=== PATIENT | male | born 1960 | race Caucasian/White ===

== ENCOUNTER 2017-05-09 16:50 | Inpatient (IN) | payer OTHER ==
[~2017-05-09 16:50] MED LIST: ISOVUE-370 76%-LOCM 1 ML ONE; Iopamidol 370 76% 50 ML VIAL FS ONE
[2017-05-09] MEDS ORDERED: Ondansetron HCl/PF 4 MG/2 ML Vial ONE (17:15)
[2017-05-09 17:52] LABS: Bilirubin Negative (Negative); Blood, Urine Negative (Negative); Glucose, Urine (Dipstick) 500 mg/dL (Negative); Ketone, Urine Negative (Negative); Nitrite Negative (Negative); Protein, Urine (Dipstick) Negative (Neg-Trace); Urobilinogen 0.2 mg/dL (0.2-1.0)
[2017-05-09 18:00] LABS: #Basophils 0.1 thou/uL (0.0-0.2); #Eosinphils 0.4 thou/uL (0.0-0.7); #Lymphocytes 1.8 thou/uL (1.20-3.40); #Monocytes 0.6 thou/uL (0.11-0.59); #Neutrophils 7.6 thou/uL (1.40-6.50); %Basophils 0.8 % (0.0-1.0); %Eosinophils 3.9 % (0.0-10.0); %Lymphocytes 17.3 % (21.0-51.0); %Monocytes 5.3 % (0.0-10.0); Hematocrit 47.9 % (42.0-52.0); Mean Platelet Volume 6.9 fL (7.4-10.4); Red Blood Cell (RBC) Count 5.31 mill/uL (4.70-6.10); White Blood Cell (WBC) Count 10.4 thou/uL (4.8-10.8)
--- NOTE | 2017-05-09 18:08 | RAD ---
EXAM: ONE VIEW CHEST 05/09/17 HISTORY: Right upper quadrant pain. The patient has gallbladder problems. COMPARISON: 11/30/16. FINDINGS: Stable postsurgical change left hemithorax. Persistent elevation of the right hemidiaphragm with anselmo nting of the right costophrenic angle. Stable cardiac silhouette. No pneumothorax. IMPRESSION: No significant change. No acute process. POS: [facility]
[2017-05-09 18:22] LABS: ALT (SGPT) 35 U/L (8-55); AST (SGOT) 23 U/L (5-34); Alkaline Phosphatase 59 U/L (40-150); Anion Gap 16 mmol/L (10-20); BUN (Urea Nitrogen) 14 mg/dL (8.4-25.7); Bilirubin, Total 0.2 mg/dL (0.2-1.2); Calc. Creatinine Clearance 0 mL/min (70-130); Calcium 9.7 mg/dL (7.8-10.44); Carbon Dioxide 21 mmol/L (22-29); Chloride 104 mmol/L (98-107); Estimated GFR-MDRD Greater than 90; Globulin 3.1 g/dL (2.4-3.5); Lipase 15 U/L (8-78); Protein, Total 7.3 g/dL (6.0-8.3)
[2017-05-09 18:34] LABS: Troponin I Less than 0.010 ng/mL (< 0.028)
--- NOTE | 2017-05-09 22:06 | CT ---
EXAM: ABDOMEN CT WITH CONTRAST PELVIC CT WITH CONTRAST 05/09/17 HISTORY: Previous appendectomy and multiple colonoscopies and colon surgery. Right sided pain. COMPARISON: 02/10/17. TECHNIQUE: An abdomen and pelvic CT are performed with IV and enteric contrast. Coronal reformatted images are submitted for interpretation. FINDINGS: Chronic changes in the lung bases. Heart size is normal. No significant pericardial fluid. Descendin g thoracic aorta and abdominal aorta have a normal caliber. No periaortic fat stranding. Intra and extrahepatic portal vein is patent. Symmetric attenuation of the psoas muscles. The liver, spleen, pancreas and adrenal glands have appropriate enhancement. Symmetric enhancement of the kidneys. Bilaterally, no obstructive uropathy. No gastrohepatic, retrocrural or periportal lymphadenopathy. No mesenteric mass, lymphadenopathy, free air or free fluid. Gastric mucosa, duodenum, and proximal small bowel loops are opacified with contrast. Mid to distal small bowel loops are not opacified wit h contrast. Nevertheless, no evidence of bowel obstruction. There is fecal material in a nondistende d, nondilated colon. Mild mucosal prominence is nonspecific and may be due to inadequate distention. There is evidence of diverticulitis without evidence of diverticulitis. Anastomotic sutures are not ed in the distal colon. Near the neck of the gallbladder, there is a 6 mm hyperdensity which may represent a small stone. Ad ditional sludge may be present. There is minimal enhancement of the gallbladder. PELVIC CT: No mass, lymphadenopathy, free air or free fluid. Urinary bladder is unremarkable. There are no lytic or blastic lesions. IMPRESSION: 1. No acute abnormality in the abdomen or pelvis. 2. There is persistent hyperdensity in the neck of the gallbladder, described on examination fr om 02/10/17. Possibility of cholelithiasis is raised. There may be a small amount of sludge. Nonemerg ent gallbladder ultrasound is recommended. Note, if followup gallbladder ultrasound does not demonst rate ka gallstone, the possibility of a possible mass-like lesion within the neck of the gallbladder should be considered. Surgical consultation is recommended. POS: [facility]
--- NOTE | 2017-05-09 23:06 | ULT ---
GALLBLADDER ULTRASOUND: 05/09/17 COMPARISON: 12/06/16 CLINICAL HISTORY: Right upper quadrant pain. FINDINGS: Evaluation of hepatic parenchyma reveals a coarsened echotexture with increased echogenicity. The ga llbladder reveals a markedly thickened wall approximating 7 mm with slight pericholecystic edema. Th ere is dilatation of common duct at 8 mm. No shadowing cholelithiasis is visualized. IMPRESSION: Thickened gallbladder wall with slight pericholecystic edema. Correlate for evidence of cholecystiti s. No shadowing cholelithiasis is visualized. Coarsened echotexture with increased echogenicity of the hepatic parenchyma. This may be on the basi s of hepatocellular disease or fatty infiltration. The findings may be further assessed with dedicat ed liver function enzymes. POS: C
[2017-05-10] MEDS: Morphine 4 MG/ML VIAL IV PRN ×3 (00:59→09:14)
[2017-05-10] MEDS ORDERED: Lactated Ringer's 1,000 ML IV SCH (01:00)
[2017-05-10 03:07] VITALS: BMI 30.9
[2017-05-10] MEDS ORDERED: Ondansetron HCl/PF 4 MG/2 ML Vial IVP PRN (08:23)
[2017-05-10] MEDS ORDERED: Dextrose 50% Abboject 50 ML SYRINGE SLOW IVP PRN ×2 (08:29→12:36)
[2017-05-10] MEDS ORDERED: Dextrose 5% in Water 1,000 ML IV PRN ×2 (08:29→12:36)
[2017-05-10] MEDS ORDERED: Insulin Regular 300 UNITS/3 ML VIAL SC PRN (08:29)
[2017-05-10] MEDS ORDERED: Morphine PF 1 MG/ML SYR IVP PRN (08:42)
[2017-05-10 08:44] LABS: PTT 27.9 SEC (22.9-36.1); Prothrombin Time 13.3 SEC (12.0-14.7)
[2017-05-10] MEDS ORDERED: FLU VACC QS2017-18 36 mo. & older 0.5 ML SYRINGE IM ONE (09:00)
[2017-05-10] MEDS ORDERED: Sodium Bicarbonate 2.4 MEQ/5 ML ONE (09:14)
[2017-05-10] MEDS: Pantoprazole 40 MG VIAL IVP SCH (09:14)
[2017-05-10] MEDS: 1/2 NS w/KCL 20 mEq 1,000 ML IV SCH ×3 (09:14→22:51)
[2017-05-10] MEDS ORDERED: Fentanyl 100 MCG/2 ML VIAL ONE (09:15)
[2017-05-10] MEDS ORDERED: Midazolam HCl 2 mg/2 ml Vial ONE (09:15)
[2017-05-10 09:17] LABS: #Basophils 0.1 thou/uL (0.0-0.2); #Eosinphils 0.2 thou/uL (0.0-0.7); #Monocytes 0.9 thou/uL (0.11-0.59); #Neutrophils 16.1 thou/uL (1.40-6.50); %Basophils 0.3 % (0.0-1.0); %Eosinophils 0.9 % (0.0-10.0); %Lymphocytes 5.7 % (21.0-51.0); Mean Platelet Volume 6.7 fL (7.4-10.4); White Blood Cell (WBC) Count 18.3 thou/uL (4.8-10.8)
[2017-05-10] MEDS: Piperacillin/Tazobactam 3.375 GM, Admixture Fee 1 EACH in Sodium Chloride 0.9% 100 ML IVPB SCH ×3 (09:22→20:39)
[2017-05-10 09:40] LABS: ALT (SGPT) 47 U/L (8-55); AST (SGOT) 34 U/L (5-34); Alkaline Phosphatase 58 U/L (40-150); Bilirubin, Direct 0.2 mg/dL (0.1-0.3); Bilirubin, Total 0.6 mg/dL (0.2-1.2); Protein, Total 6.8 g/dL (6.0-8.3)
[2017-05-10] MEDS: Morphine 4 MG/ML VIAL SLOW IVP PRN ×2 (10:50→15:59)
--- NOTE | 2017-05-10 11:10 | HP ---
CHIEF COMPLAINT: Right upper quadrant abdominal pain. HISTORY OF PRESENT ILLNESS: This is a 57-year-old male with a 24-hour history of right upper quadra nt pain radiating to the back, associated with nausea, no vomiting. Patient has had this in the [facility]. In fact in December at [facility], he had a cholecystostomy tube placed for the exact same thing, becau se he was too high risk to go to the operating room. PAST MEDICAL HISTORY: Severe COPD, history of colon cancer, history of diabetes. PAST SURGICAL HISTORY: He has had bilateral lung lobectomies, he has had 2 exploratory laparotomies and a partial colectomy and cholecystostomy tube. MEDICATIONS: Include metformin, Prilosec, Spiriva, albuterol, hydrocodone. ALLERGIES: He is allergic to ATIVAN. SOCIAL HISTORY: He is . He smokes 1 pack per day. Occasional alcohol weekly. FAMILY HISTORY: Heart disease and lung cancer. PHYSICAL EXAMINATION: VITAL SIGNS: Temperature 97.7, pulse 87, blood pressure 156/76. GENERAL: He is writhing in pain, but he is awake. HEENT: No jaundice. LUNGS: Hypo-resident. HEART: Regular rate and rhythm. ABDOMEN: Very tender right upper quadrant. I do not feel any masses. EXTREMITIES: Unremarkable. LABORATORY DATA AND X-RAY FINDINGS: His white count is 10.4, H\T\H is 16 and 47, platelet count 206 . Electrolytes are fine. LFTs normal. CT scan shows hyperdensity in the neck of the gallbladder c onsistent with an impacted gallstone. Ultrasound shows a thickened gallbladder wall with pericholec ystic fluid. ASSESSMENT: High surgical risk with acute cholecystitis. PLAN: Percutaneous drainage. Pulmonary consultation. Diabetes management.
[2017-05-10] MEDS ORDERED: Ketorolac Tromethamine 30 MG/ML VIAL IVP PRN (11:27)
--- NOTE | 2017-05-10 12:18 | CT ---
PROCEDURE: CT GUIDED DRAIN PLACEMENT INTO THE GALLBLADDER: PREPROCEDURE DIAGNOSIS: Acute cholecystitis and severe chronic obstructive pulmonary disease. POSTPROCEDURE DIAGNOSIS: Acute cholecystitis and severe chronic obstructive pulmonary disease. TRANSPORTATION MAINTENANCE WORKER: Dr. Pierce. COMPLICATIONS: None. SPECIMEN: None. ANESTHESIA: 10 mL of buffered 1% Lidocaine. TECHNIQUE: Prior to the procedure, the risks and benefits of a CT-guided drain placement in the gallbladder wer e explained with the patient and he consented fully to the procedure. The patient was scanned with a fiducial marker in place. The area of best entry into the gallbladde r was marked in the right upper quadrant of the abdomen. The abdomen was prepped and draped in the usual sterile fashion. Lidocaine was used to anesthetize the skin and soft tissues down toward the gallbladder. A CT was p erformed showing appropriate direction of the Lidocaine needle. The Lidocaine needle was then remov ed. A small skin incision was made allowing for patches of a Yueh needle/catheter. This was placed using CT guidance into the gallbladder. Bilious fluid was seen within the Yueh needle and catheter . A scan also confirmed the tip of the Yueh catheter within the gallbladder. The Yueh needle was r emoved and a Amplatz wire was placed through the Yueh catheter in the gallbladder. An 8 Guinean pigt ail catheter was eventually placed over the Amplatz wire and coiled within the gallbladder. A CT scan showed the pigtail catheter within the gallbladder. An 0 silk suture was used to secure t he gallbladder catheter to the patient's skin externally. IMPRESSION: Status post CT-guided gallbladder drain placement. POS: [facility]
[2017-05-10] MEDS: Ketorolac Tromethamine 30 MG/ML VIAL IVP PRN ×2 (12:26→20:40)
[2017-05-10] MEDS ORDERED: Famotidine/PF 20 mg/2ml Vial SLOW IVP PRN (12:36)
[2017-05-10] MEDS ORDERED: cloNIDine 0.1 MG TAB PO PRN (12:36)
[2017-05-10] MEDS ORDERED: Acetaminophen 500 MG TAB PO PRN (12:36)
[2017-05-10] MEDS ORDERED: diphenhydrAMINE 50 MG/ML VIAL IVP PRN (12:36)
[2017-05-10] MEDS ORDERED: hydrALAZINE 20 MG/ML VIAL SLOW IVP PRN (12:36)
[2017-05-10] MEDS ORDERED: diphenhydrAMINE 25 MG CAP PO PRN (12:36)
[2017-05-10] MEDS ORDERED: Sodium Chloride 0.9% 1,000 ML IV SCH (12:45)
[2017-05-10 13:36] LABS: Lactic Acid - Sepsis 2.5 mmol/L (0.5-2.2)
[2017-05-10 13:50] LABS: Troponin I Less than 0.010 ng/mL (< 0.028)
[2017-05-10] MEDS ORDERED: MEROPENEM 1 GM/50 ML 1 GM in Premix Bag 1 BAG IVPB SCH ×2 (14:00→16:00)
--- NOTE | 2017-05-10 16:10 | CON ---
DATE OF CONSULTATION: 05/10/2017 PRIMARY CARE PROVIDER: Jarad Mack MD, at [facility]. PRIMARY SERVICE ATTENDING: Dr. Johann Waldron, General Surgery Service. REASON FOR CONSULTATION: Tachycardia and fever. HISTORY OF PRESENT ILLNESS: This is a 57-year-old male who initially presented to [facility] Emergency Department with complaints of abdominal pain localizing to the right upper qu adrant region. Patient with a previous history of gallstones and cholecystitis, previous history of cholelithiasis, undergoing a cholecystostomy placement, a percutaneous cholecystostomy due to high risk for surgical intervention due to chronic obstructive pulmonary disease. Patient underwent gene ral evaluation in the emergency room including CT of the abdomen and pelvis as well as abdominal ult rasound showing evidence of gallbladder wall thickening concerning for cholecystitis without common bile duct obstruction. No specific evidence of common bile duct obstruction with common bile duct m easuring an 8 mm. Concern for a gallbladder neck mass was noted prompting surgical consultation. P brian was evaluated by the General Surgery Service with recommendations for proceeding with a grupo cystostomy placement, which patient underwent on 05/10/2017. Postoperatively, patient was transferr ed back to surgical [place], at which point, nursing personnel noted tachycardia, fever of 101 degrees Fahrenheit, increased respiratory rate and questionable reaction to Zosyn which was given intravenou sly for treatment of cholecystitis. Patient denied any specific angioedema type symptoms, lip swell ing, hives or skin reaction. Patient was noted with temperature of 101 degrees Fahrenheit as stated previously with tachycardia into the 130s. Patient also with elevated white blood cell count of 18 ,000 meeting sepsis criteria. PAST MEDICAL HISTORY: 1. Chronic obstructive pulmonary disease. 2. History of colon cancer, status post resection. 3. Diabetes mellitus type 2. 4. History of cholelithiasis/cholecystitis. 5. Hypertension. 6. Hyperlipidemia. 7. Peripheral neuropathy. PAST SURGICAL HISTORY: 1. Status post exploratory laparotomy x2. 2. Status post partial colectomy due to colon cancer. 3. Status post cholecystostomy placement. 4. Status post bilateral lung lobectomies. CURRENT MEDICATIONS: 1. Lipitor 10 mg one tab p.o. daily. 2. Gabapentin 600 mg p.o. b.i.d. 3. Humulin R subcutaneously b.i.d. with meals. 4. Omeprazole 40 mg p.o. daily. 5. Glipizide 10 mg one tab p.o. daily. 6. Hydralazine 10 mg 1 tab p.o. daily. 7. Metformin 1000 mg p.o. b.i.d. ALLERGIES: PEANUTS and LORAZEPAM. FAMILY HISTORY: Positive for diabetes mellitus type 2. SOCIAL HISTORY: The patient resides in the [place], [place] area. Lives independently. No current alc ohol or illicit drug use. Smokes up to half a pack to 1 pack of cigarettes daily. REVIEW OF SYSTEMS: The following complete review of systems was negative, unless otherwise mentione d in the HPI or below: Constitutional: Weight loss or gain, ability to conduct usual activities. Skin: Rash, itching. Eyes: Double vision, pain. ENT/Mouth: Nose bleeding, neck stiffness, pain, tenderness. Cardiovascular: Palpitations, dyspnea on exertion, orthopnea. Respiratory: Shortnes s of breath, wheezing, cough, hemoptysis, fever or night sweats. Gastrointestinal: Poor appetite, abdominal pain, heartburn, nausea, vomiting, constipation, or diarrhea. Genitourinary: Urgency, fr equency, dysuria, nocturia. Musculoskeletal: Pain, swelling. Neurologic/Psychiatric: Anxiety, de pression. Allergy/Immunologic: Skin rash, bleeding tendency. PHYSICAL EXAMINATION: VITAL SIGNS: Currently, temperature of 101 degrees Fahrenheit, blood pressure 150/82, pulse 135, re spiratory rate is 35, O2 saturation 94% on 2 L per minute by nasal cannula. GENERAL APPEARANCE: This is a 57-year-old male, agitated, alert, toxic appearing in mild to moderate distress. HEENT: Pupils are equal, round, and reactive to light and accommodation. Extraocular muscles are i ntact. No scleral icterus, no conjunctival injection. Nares patent. OP is clear. Teeth in fair r epair. NECK: Supple, no cervical adenopathy, no thyromegaly, no carotid bruits, no JVD appreciated. Cervi lisa spine with full active and passive range of motion. No meningeal signs appreciated. CHEST: Diminished breath sounds in the bases bilaterally. Occasional expiratory wheeze. CARDIOVASCULAR: S1, S2 with tachycardia. ABDOMEN: Protuberant with right upper quadrant percutaneous cholecystostomy tube in place. Bowel s ounds are positive in all four quadrants. Positive tenderness to palpation diffusely. No palpable mass. EXTREMITIES: Clammy. No asymmetric edema appreciated. Pulses palpable distally at the dorsalis pe dis, posterior tibial and popliteal arteries bilaterally. Capillary refill less than 2 seconds. NEUROLOGIC: Cranial nerves II-XII are grossly intact. No focal or lateralizing signs appreciated. PERTINENT LABORATORY AND X-RAY FINDINGS: Sodium 137, potassium 4.1, chloride 104, CO2 of 21, BUN 14 , creatinine 0.85, glucose 210, calcium 9.7. LFTs within normal limits. Troponin I negative x1. A lbumin 4.0, lipase 15. CBC showed a white blood cell count of 18.3, hemoglobin 16, hematocrit 48, p latelet count 182 with 88% neutrophilia. PT 13.3, INR 1.0, PTT 27.9. Urinalysis positive for gluco se. Portable chest x-ray dated 05/09/2017 showed no acute cardiopulmonary process. Post-surgical c hanges in the left hemithorax noted. Elevated right hemidiaphragm noted. CT of the abdomen and pel vis dated 05/09/2017 showed hyperdensity in the neck of the gallbladder. Abdominal ultrasound dated 05/09/2017 showed common bile duct 8 mm. Gallbladder wall thickening with 7 mm with slight pericho lecystic edema. EKG dated 05/10/2017 at 11:27 a.m. by my interpretation shows sinus tachycardia wit h heart rates in the 150s. Normal R-wave progression noted in the precordial leads. Baseline artif act noted. Normal axis. No acute ST-T wave changes noted. ASSESSMENT AND PLAN: 1. Sepsis. Patient will be placed on sepsis protocol. We will initiate normal saline 30 mL per ki logram IV bolus. Start meropenem 1 g IV q.8 hours, first dose now. Blood and urine cultures per pr otocol. Check lactic acid level per protocol. We will transfer to the Telemetry Unit due to sinus tachycardia and close monitoring. Repeat portable chest x-ray in the a.m. 2. Febrile episode. Continue Toradol 30 mg IV q.6 hours p.r.n. Acetaminophen 1000 mg p.o. q.6 marycarmen rs p.r.n. 3. Cholecystitis, status post percutaneous cholecystostomy tube placement. Continue to provide payal n control. General Surgery monitoring and following tube drainage. Continue meropenem as outlined previously. 4. Diabetes mellitus type 2. We will provide insulin sliding scale. Hold oral hypoglycemics until tolerating consistent oral intake. Accu-Cheks q.4 hours. 5. Chronic obstructive pulmonary disease. Continue DuoNeb q.4 hours p.r.n. Oxygen supplementation to maintain O2 saturations greater than 90%. Repeat portable chest x-ray in the a.m. 6. Sinus tachycardia secondarily to #1. Continue IV fluids as outlined previously. We will transf er to the Telemetry Unit for further monitoring. 7. Prophylaxis. Sequential compression devices while in bed. Protonix 40 mg IV q. 24 hours. 8. Code status is FULL. Surrogate medical decision maker is patient's sister, Nichole Gold. Thank you for the consultation. We will continue to follow with primary service.
[2017-05-10] MEDS: HumaLOG 300 UNITS/3 ML VIAL SC PRN (20:39)
[2017-05-10] MEDS ORDERED: Albuterol Sulfate 2.5 mg/3 ml Neb NEB PRN (20:59)
[2017-05-10] MEDS ORDERED: predniSONE 20 MG TAB PO SCH (21:30)
[2017-05-10] MEDS: Insulin Detemir 100 UNITS/ML 5 UNITS in Pre-Filled Syringe 1 EACH SC SCH (21:55)
--- NOTE | 2017-05-10 23:15 | CON ---
DATE OF CONSULTATION: 05/10/2017 SERVICE: Pulmonary Medicine. REASON FOR CONSULTATION: Chronic obstructive pulmonary disease. HISTORY OF PRESENT ILLNESS: The patient is a 57-year-old white male with past medical history signi ficant for COPD. He underwent bilateral bullectomy at some point in the past. The right side was d one because of recurrent spontaneous pneumothorax x2. The left side was subsequently done as an megan ctive procedure for volume reduction. Following that procedure, he underwent pleurodesis of the lef t chest. He currently is in his usual state of health, as far as breathing is concerned. More rece ntly, he has had recurrent episodes of intermittent gallbladder pain. He was treated with a cholecy stostomy drain in the outpatient setting, but this accidentally fell out previously. He was doing w ell for a period of time, but started having intermittent abdominal discomfort that was reminiscent of his previous episodes. He presented to the emergency department. Because of his significant dis comfort, he was sent down for a percutaneous cholecystostomy drain. He has very significant lung di sease. Previously, surgery has been hesitant to perform any additional procedures because he has zurita d some perioperative respiratory complications previously. PAST MEDICAL HISTORY: 1. COPD, severe. 2. History of colon cancer, status post colon resection. 3. Type 2 diabetes mellitus. 4. Hypertension. 5. Dyslipidemia. 6. Peripheral neuropathy. PAST SURGICAL HISTORY: 1. Exploratory laparotomy, multiple. 2. Partial colectomy secondary to colon cancer. 3. History of cholecystostomy tube placement. 4. Chest tube on the right x2 for secondary spontaneous pneumothorax. 5. Subsequent bullectomy of the right upper lobe. 6. Bullectomy of the left upper lobe, status post pleurodesis. ALLERGIES: PEANUT, LORAZEPAM. MEDICATIONS: His list of inpatient medicines were reviewed. Multiple attempts were made at this ti nh. FAMILY HISTORY: Noncontributory. SOCIAL HISTORY: He currently lives in [place], [place]. He denies any alcohol or illicit drug use. He smokes half a pack of cigarettes on a daily basis and continues to smoke. He denies any exposure t o chemical dust, asbestos or tuberculosis. REVIEW OF SYSTEMS: General, head, ears, eyes, nose, throat, cardiovascular, respiratory, GI, , mu sculoskeletal, neurologic and skin is negative except as mentioned in the HPI. PHYSICAL EXAMINATION: VITAL SIGNS: T-max 101.2, pulse 102, blood pressure 126/68, respirations 19, saturation 94% on 3 li ters nasal cannula. GENERAL: The patient is awake and alert. He is in moderate distress associated with right upper qu adrant discomfort. HEENT: Normocephalic, atraumatic. Sclerae are white. Conjunctivae pink. Oral mucosa moist withou t lesions. LUNGS: Decreased air entry. There is a prolonged expiratory phase, but no significant wheezing or rhonchi. That being said, he is not really moving enough air for me to hear adventitious sounds. HEART: Tachycardic. Regular. ABDOMEN: Tender to palpation throughout. There is minimal rebound. Bowel sounds are hypoactive. GENITOURINARY: No Quinones. NEUROLOGIC: Grossly nonfocal. MUSCULOSKELETAL: No cyanosis or clubbing. No pitting in the bilateral lower extremities. LABORATORY DATA: WBC 18.3, hemoglobin 16.3, platelets 182,000. INR 1.0. Lactate 1.5 and decreasin g. Blood sugars ranged from 196 to 273. Troponin is less than the assay limit is 0.01. Liver func tion studies and basic metabolic profile are unremarkable. Urinalysis is unremarkable except for gl ycosuria. Body fluid culture from the gallbladder demonstrating no white blood cells, but multiple gram positive rods, and multiple gram-negative rods. ASSESSMENT: 1. Cholecystitis. 2. Chronic hypoxic respiratory failure. 3. Chronic obstructive pulmonary disease with acute exacerbation. 4. Type 2 diabetes mellitus, severe. 5. Obstructive sleep apnea. PLAN: I have asked the patient to bring his CPAP unit in from home. We are going to go ahead and t reat him for COPD exacerbation, so that we can optimize him for a surgery. He is a high risk patien t for moderate risk procedure. He does appreciate that this carries the risks associated with that of increasing likelihood perioperative respiratory events, which can include being on the ventilator for multiple days and possibly even tracheostomy. He is more likely, however, to make it through t he surgery without significant issues. We will watch his blood sugars with the addition of predniso ne. Hopefully, in 48-72 hours, the patient will be optimized to proceed with surgery from a respira tory perspective. I will continue to follow while the patient remains in house.
[2017-05-11] MEDS: Piperacillin/Tazobactam 3.375 GM, Admixture Fee 1 EACH in Sodium Chloride 0.9% 100 ML IVPB SCH ×4 (02:46→20:57)
[2017-05-11 05:59] LABS: #Lymphocytes 0.3 thou/uL (1.20-3.40); #Monocytes 0.4 thou/uL (0.11-0.59); #Neutrophils 9.9 thou/uL (1.40-6.50); %Eosinophils 0.1 % (0.0-10.0); %Lymphocytes 2.8 % (21.0-51.0); %Monocytes 3.6 % (0.0-10.0); Hematocrit 44.2 % (42.0-52.0); Mean Platelet Volume 7.1 fL (7.4-10.4); Red Blood Cell (RBC) Count 4.82 mill/uL (4.70-6.10); White Blood Cell (WBC) Count 10.6 thou/uL (4.8-10.8)
[2017-05-11 06:29] LABS: ALT (SGPT) 57 U/L (8-55); AST (SGOT) 45 U/L (5-34); Alkaline Phosphatase 51 U/L (40-150); Anion Gap 14 mmol/L (10-20); BUN (Urea Nitrogen) 9 mg/dL (8.4-25.7); Bilirubin, Direct 0.3 mg/dL (0.1-0.3); Bilirubin, Total 0.8 mg/dL (0.2-1.2); Calc. Creatinine Clearance 153 mL/min (70-130); Calcium 8.9 mg/dL (7.8-10.44); Carbon Dioxide 21 mmol/L (22-29); Chloride 104 mmol/L (98-107); Estimated GFR-MDRD Greater than 90; Globulin 2.8 g/dL (2.4-3.5); Protein, Total 6.5 g/dL (6.0-8.3)
--- NOTE | 2017-05-11 07:53 | PDOC.PN ---
- Subjective Encounter Start Date: 05/11/17 Encounter Start Time: 08:50 Subjective: Patient with some improvement in abdominal pain. Very hungry and wants to -: eat if ok with surgery. Breathing a little better with steroids. - Objective MAR Reviewed: Yes Vital Signs & Weight: Vital Signs (12 hours) Temp Pulse Resp BP Pulse Ox 05/11/17 06:37 75 16 98 05/11/17 04:40 98.3 F 90 18 122/72 92 L 05/10/17 20:40 98.6 F 102 H 18 92 L Weight Weight 222 lb 12.8 oz I&O: 05/10/17 05/11/17 05/12/17 06:59 06:59 06:59 Intake Total 3201 Output Total 1479 Balance 1722 Result Diagrams: 05/11/17 05:38 05/11/17 05:38 Additional Labs: Accuchecks 05/11/17 05/11/17 05/10/17 04:15 01:18 20:31 POC Glucose 205 H 205 H 273 H 05/10/17 05/10/17 05/10/17 16:13 12:06 05:08 POC Glucose 198 H 196 H 179 H Phys Exam - Physical Examination Constitutional: NAD HEENT: moist MMs Respiratory: no rales, no rhonchi mild wheezing, no increased WOB, good air movement throughout Cardiovascular: RRR, no significant murmur Gastrointestinal: soft, positive bowel sounds obese, diffuse TTP, mild guarding Musculoskeletal: pulses present Neurological: non-focal, moves all 4 limbs Psychiatric: normal affect, A&O x 3 Dx/Plan (1) Sepsis Code(s): A41.9 - SEPSIS, UNSPECIFIED ORGANISM Status: Resolved Comment: On Meropenem, Tachycardia, Fever, and Leukocytosis resolved. (2) Cholecystitis, acute Code(s): K81.0 - ACUTE CHOLECYSTITIS Status: Acute Comment: s/p percutaneous cholecystostomy tube placement (3) COPD exacerbation Code(s): J44.1 - CHRONIC OBSTRUCTIVE PULMONARY DISEASE W (ACUTE) EXACERBATION Status: Acute Comment: On steroids and antibiotics to prepare for surgery (4) LEDA (obstructive sleep apnea) Code(s): G47.33 - OBSTRUCTIVE SLEEP APNEA (ADULT) (PEDIATRIC) Status: Chronic (5) Diabetes mellitus type 2 in obese Code(s): E11.69 - TYPE 2 DIABETES MELLITUS WITH OTHER SPECIFIED COMPLICATION; E66.9 - OBESITY, UNSPECIFIED Status: Chronic - Plan cont current plan of care, continue antibiotics * . - Discharge Encounter end time: 09:15
[2017-05-11] MEDS: predniSONE 20 MG TAB PO SCH (08:51)
[2017-05-11] MEDS: Pantoprazole 40 MG VIAL IVP SCH (08:51)
[2017-05-11] MEDS: Insulin Detemir 100 UNITS/ML 5 UNITS in Pre-Filled Syringe 1 EACH SC SCH ×2 (08:52→20:56)
[2017-05-11] MEDS: 1/2 NS w/KCL 20 mEq 1,000 ML IV SCH ×3 (08:52→17:40)
[2017-05-11] MEDS: Morphine 4 MG/ML VIAL SLOW IVP PRN (10:58)
[2017-05-11] MEDS: HumaLOG 300 UNITS/3 ML VIAL SC PRN ×3 (12:26→20:57)
[2017-05-11] MEDS ORDERED: HYDROcodone/Acetaminophen 10/325 mg Tablet PO PRN (12:41)
[2017-05-11] MEDS: HYDROcodone/Acetaminophen 10/325 mg Tablet PO PRN (15:29)
--- NOTE | 2017-05-11 18:21 | PRG ---
DATE OF SERVICE: 05/11/2017 SERVICE: Pulmonary Medicine. INTERVAL HISTORY: The patient is doing great from a respiratory standpoint. He currently denies an y fevers, chills, nausea, vomiting, or chest discomfort. His breathing is much improved. He has be en able to go on a couple of walk about and get down outside so that he can get some fresh air. Of note, he does continue to smoke. There were no overnight events. PHYSICAL EXAMINATION: VITAL SIGNS: Afebrile, pulse 98, blood pressure 140/107, respirations 19, saturation 91% on 3 liter s nasal cannula. GENERAL: The patient is awake and alert, in no apparent distress. LUNGS: Decreased air entry, which is slightly improved today. There is a prolonged expiratory phas e with expiratory wheezing present. No crackles or rhonchi are appreciated. HEART: Normal rate, regular. ABDOMEN: Distended. Bowel sounds are present. There is some tenderness to palpation throughout. No rebound or guarding is identified. MUSCULOSKELETAL: No cyanosis or clubbing. No pitting in the bilateral lower extremities. NEUROLOGIC: Grossly nonfocal. LABORATORY DATA: WBC 10.6 and down trending. Hemoglobin 14.9, platelets 132,000. Neutrophil count is 94%. This is actually up trending, but overall white blood cell count has improved. INR 1.0. Basic metabolic profile is unremarkable. AST and ALT are gently up trending. Alkaline phosphatase, however, remains normal. Gram-negative malcolm is growing in a bile fluid. One out of two blood cultu res is growing Enterococcus species. Urine cultures negative at 12 hours. ASSESSMENT: 1. Cholecystitis. 2. Bacteremia, possible. 3. Chronic hypoxic respiratory failure. 4. Chronic obstructive pulmonary disease with acute exacerbation. 5. Type 2 diabetes mellitus, severe. 6. Obstructive sleep apnea. PLAN: The patient was unable to get his home unit here. As such, we will empirically give him 14/ 0 on BiPAP. We will continue nebulized medications and steroids. Empiric antibiotics directed at [facility] is perfectly appropriate. I will continue to follow along while the patient remains in the hospital. His respiratory status is improving a little bit. Tentatively, I think he will be jon up to undergo a surgical procedure by Friday.
[2017-05-12] MEDS: HumaLOG 300 UNITS/3 ML VIAL SC PRN ×5 (00:38→21:13)
[2017-05-12] MEDS: Morphine 4 MG/ML VIAL SLOW IVP PRN ×3 (00:46→21:29)
[2017-05-12 04:43] LABS: #Eosinphils 0.2 thou/uL (0.0-0.7); #Monocytes 0.6 thou/uL (0.11-0.59); #Neutrophils 5.6 thou/uL (1.40-6.50); %Basophils 0.1 % (0.0-1.0); %Eosinophils 3.1 % (0.0-10.0); %Lymphocytes 13.3 % (21.0-51.0); %Monocytes 8.2 % (0.0-10.0); Hematocrit 42.4 % (42.0-52.0); Red Blood Cell (RBC) Count 4.64 mill/uL (4.70-6.10); White Blood Cell (WBC) Count 7.4 thou/uL (4.8-10.8)
[2017-05-12] MEDS: Piperacillin/Tazobactam 3.375 GM, Admixture Fee 1 EACH in Sodium Chloride 0.9% 100 ML IVPB SCH ×4 (04:44→20:09)
[2017-05-12 05:03] LABS: Anion Gap 12 mmol/L (10-20); BUN (Urea Nitrogen) 15 mg/dL (8.4-25.7); Calc. Creatinine Clearance 147 mL/min (70-130); Calcium 8.7 mg/dL (7.8-10.44); Carbon Dioxide 23 mmol/L (22-29); Chloride 105 mmol/L (98-107); Estimated GFR-MDRD Greater than 90
[2017-05-12] MEDS: 1/2 NS w/KCL 20 mEq 1,000 ML IV SCH ×2 (05:50→20:08)
--- NOTE | 2017-05-12 07:57 | PDOC.PN ---
- Subjective Encounter Start Date: 05/12/17 Encounter Start Time: 08:00 Subjective: SOB a little better. Ambulating. Some fevers overnight. - Objective MAR Reviewed: Yes Vital Signs & Weight: Vital Signs (12 hours) Temp Pulse Resp BP Pulse Ox 05/12/17 06:51 95 05/12/17 06:48 70 19 96 05/12/17 04:00 97.8 F 71 20 124/68 90 L 05/12/17 03:24 20 95 05/12/17 03:20 90 L 05/12/17 03:11 95 05/12/17 00:55 93 L 05/12/17 00:00 97.5 F L 75 20 135/58 L 93 L 05/11/17 23:55 74 18 96 05/11/17 21:00 89 12 96 Weight Weight 215 lb I&O: 05/11/17 05/12/17 05/13/17 06:59 06:59 06:59 Intake Total 3201 4070 Output Total 1479 2500 Balance 1722 1570 Result Diagrams: 05/12/17 04:24 05/12/17 04:24 Additional Labs: Accuchecks 05/12/17 05/11/17 05/11/17 00:37 20:29 16:26 POC Glucose 264 H 235 H 264 H 05/11/17 11:10 POC Glucose 211 H Phys Exam - Physical Examination Constitutional: NAD HEENT: moist MMs Respiratory: no rales, no rhonchi, wheezing present Cardiovascular: RRR, no significant murmur Gastrointestinal: soft, positive bowel sounds TTP especially in RUQ Neurological: non-focal, moves all 4 limbs Psychiatric: normal affect, A&O x 3 Dx/Plan (1) Sepsis Code(s): A41.9 - SEPSIS, UNSPECIFIED ORGANISM Status: Resolved Comment: On Meropenem, Tachycardia, Fever, and Leukocytosis resolved. Growing enterobacter from gallbladder and 1/2 blood cultures. (2) Cholecystitis, acute Code(s): K81.0 - ACUTE CHOLECYSTITIS Status: Acute Comment: s/p percutaneous cholecystostomy tube placement (3) COPD exacerbation Code(s): J44.1 - CHRONIC OBSTRUCTIVE PULMONARY DISEASE W (ACUTE) EXACERBATION Status: Acute Comment: On steroids and antibiotics to prepare for surgery (4) LEDA (obstructive sleep apnea) Code(s): G47.33 - OBSTRUCTIVE SLEEP APNEA (ADULT) (PEDIATRIC) Status: Chronic (5) Diabetes mellitus type 2 in obese Code(s): E11.69 - TYPE 2 DIABETES MELLITUS WITH OTHER SPECIFIED COMPLICATION; E66.9 - OBESITY, UNSPECIFIED Status: Chronic - Plan cont current plan of care, continue antibiotics, out of bed/ambulate, DVT proph w/lovenox * . - Discharge Day Encounter end time: 08:30
[2017-05-12] MEDS: Enoxaparin Sodium 40 MG/0.4 ML SYRINGE SC SCH (08:46)
[2017-05-12] MEDS: HYDROcodone/Acetaminophen 10/325 mg Tablet PO PRN ×3 (08:47→19:33)
[2017-05-12] MEDS: Pantoprazole 40 MG VIAL IVP SCH (08:47)
[2017-05-12] MEDS: predniSONE 20 MG TAB PO SCH (08:48)
[2017-05-12] MEDS: Insulin Detemir 100 UNITS/ML 5 UNITS in Pre-Filled Syringe 1 EACH SC SCH ×2 (10:43→21:13)
--- NOTE | 2017-05-12 19:20 | PRG ---
DATE OF SERVICE: 05/12/2017 SERVICE: Pulmonary Medicine. INTERVAL HISTORY: The patient is doing fine from a respiratory standpoint. He continues to go on h is walk about. He denies any overnight events, fevers, chills, nausea, vomiting. His breathing has basically returned to baseline. PHYSICAL EXAMINATION: VITAL SIGNS: Afebrile, pulse 83, blood pressure 132/68, respirations 18, saturation 95% on 2 liters nasal cannula. GENERAL: Patient is awake, alert, no apparent distress. LUNGS: There is decreased air entry with a prolonged expiratory phase. The wheezing is much improv ed. No crackles or rhonchi are appreciated. HEART: Normal rate, regular. ABDOMEN: Soft, nontender, nondistended. Bowel sounds positive. MUSCULOSKELETAL: No cyanosis or clubbing. No pitting in the bilateral lower extremities. NEUROLOGIC: Grossly nonfocal. LABORATORY DATA: WBC 7.4, hemoglobin 14.3, platelets 161,000. INR 1.0. Basic metabolic profile is unremarkable. Blood sugars ranged from 182-285. Urinalysis is unremarkable. Central line is grow ing Enterobacter in 1/2. Urine culture is negative to date. Bile fluid culture is growing Enteroba cter and Enterococcus species. One of the two is a pansensitive organism. ASSESSMENT: 1. Cholecystitis. 2. Bacteremia, more likely to represent a contaminant. 3. Chronic hypoxic respiratory failure. 4. Chronic obstructive pulmonary disease with acute exacerbation. 5. Type 2 diabetes mellitus, severe. 6. Obstructive sleep apnea. PLAN: The patient is optimized from a medical standpoint for any type of surgical procedure. That being said, it is my understanding that Dr. Waldron would like for his gallbladder to cool off for 3-4 weeks prior to pursuing cholecystectomy. I will certainly be available in the future if he runs an y issues from respiratory status in the perioperative period. Once an antibiotic course induration is identified, the patient can be transitioned out of the hospital. It looks like we may get away w ith some p.o. medications. I will leave that to primary care to decide.
[2017-05-13] MEDS: 1/2 NS w/KCL 20 mEq 1,000 ML IV SCH (00:22)
[2017-05-13] MEDS: HYDROcodone/Acetaminophen 10/325 mg Tablet PO PRN ×4 (00:58→14:30)
[2017-05-13] MEDS: Piperacillin/Tazobactam 3.375 GM, Admixture Fee 1 EACH in Sodium Chloride 0.9% 100 ML IVPB SCH ×2 (03:04→09:46)
[2017-05-13 07:41] VITALS: TEMP 98.5
[2017-05-13] MEDS: Pantoprazole 40 MG VIAL IVP SCH (09:48)
[2017-05-13] MEDS: Enoxaparin Sodium 40 MG/0.4 ML SYRINGE SC SCH (09:48)
[2017-05-13] MEDS: predniSONE 20 MG TAB PO SCH (09:48)
[2017-05-13] MEDS: Insulin Detemir 100 UNITS/ML 5 UNITS in Pre-Filled Syringe 1 EACH SC SCH (09:54)
--- NOTE | 2017-05-13 10:13 | PDOC.PN ---
- Subjective Encounter Start Date: 05/13/17 Encounter Start Time: 11:30 Subjective: Pain improved with norco. Patient ambulating hospital and -: ready to go home. - Objective MAR Reviewed: Yes Vital Signs & Weight: Vital Signs (12 hours) Temp Pulse Resp BP BP BP Pulse Ox 05/13/17 07:39 98.5 F 77 20 131/80 97 05/13/17 06:03 97.8 F 05/13/17 04:00 59 L 20 133/82 97 05/13/17 03:40 97 05/13/17 02:14 91 L 05/13/17 00:55 96 20 96 05/13/17 00:01 78 20 157/72 H 90 L Weight Weight 214 lb 14.4 oz I&O: 05/12/17 05/13/17 05/14/17 06:59 06:59 06:59 Intake Total 4070 3528 Output Total 2510 3520 Balance 1560 8 Result Diagrams: 05/12/17 04:24 05/12/17 04:24 Additional Labs: Accuchecks 05/13/17 05/12/17 05/12/17 05:55 20:42 17:12 POC Glucose 199 H 346 H 303 H 05/12/17 11:40 POC Glucose 285 H Phys Exam - Physical Examination Constitutional: NAD HEENT: moist MMs Respiratory: no wheezing, no rales, no rhonchi, clear to auscultation bilateral Cardiovascular: RRR, no significant murmur Gastrointestinal: soft, positive bowel sounds Neurological: non-focal, moves all 4 limbs Psychiatric: normal affect, A&O x 3 Dx/Plan (1) Sepsis Code(s): A41.9 - SEPSIS, UNSPECIFIED ORGANISM Status: Resolved Comment: On Meropenem, Tachycardia, Fever, and Leukocytosis resolved. Growing enterobacter from gallbladder and 1/2 blood cultures. E. aerogenes from blood and gallbladder , small amt of E. faecalis from GB only. Will d/c IV abx, switch to Cipro and Amoxicillin. (2) Cholecystitis, acute Code(s): K81.0 - ACUTE CHOLECYSTITIS Status: Acute Comment: s/p percutaneous cholecystostomy tube placement (3) COPD exacerbation Code(s): J44.1 - CHRONIC OBSTRUCTIVE PULMONARY DISEASE W (ACUTE) EXACERBATION Status: Acute Comment: On steroids and antibiotics to prepare for surgery, surgery after cools down for 2-3 weeks (4) LEDA (obstructive sleep apnea) Code(s): G47.33 - OBSTRUCTIVE SLEEP APNEA (ADULT) (PEDIATRIC) Status: Chronic (5) Diabetes mellitus type 2 in obese Code(s): E11.69 - TYPE 2 DIABETES MELLITUS WITH OTHER SPECIFIED COMPLICATION; E66.9 - OBESITY, UNSPECIFIED Status: Chronic - Plan cont current plan of care, continue antibiotics, out of bed/ambulate Will d/c on oral antibiotics. F/u with Dr. Waldron in 2 weeks for surgery -: plan. 2 more days of steroids for COPD. * . - Discharge Day Encounter end time: 11:40
[2017-05-13 11:41] VITALS: BP 146/75
[2017-05-13] MEDS: HumaLOG 300 UNITS/3 ML VIAL SC PRN (12:59)
--- NOTE | 2017-05-13 14:22 | DIS ---
PRIMARY CARE PHYSICIAN: Dr. Mack DIAGNOSES ON ADMISSION: 1. Sepsis. 2. Acute cholecystitis. 3. Diabetes mellitus type 2. 4. Chronic obstructive pulmonary disease. DIAGNOSES ON DISCHARGE: 1. Sepsis with bacteremia, resolved. 2. Acute cholecystitis, status post percutaneous cholecystostomy tube placement. 3. Chronic obstructive pulmonary disease exacerbation, improved. 4. Diabetes mellitus type 2. 5. Obstructive sleep apnea. CONSULTATIONS: 1. Surgery was the initial admitting team, Dr. Johann Waldron. 2. Our team, [facility] for medical management. 3. Pulmonology, Dr. Gautam. PROCEDURES: 1. CT of the abdomen and pelvis with contrast showing possible cholelithiasis versus possible mass- like lesion at the gallbladder neck. 2. Gallbladder ultrasound showing a thickened gallbladder with pericholecystic edema consistent wit h acute cholecystitis. 3. CT guided drain placement into the gallbladder. PERTINENT LABORATORY: White blood cell count did jump to 18 during the hospitalization and then res olved. Blood sugars have been running in the 200s-300s off of the patient's metformin, creatinine h as been normal. Liver function tests are grossly normal. Gallbladder fluid culture grew back large amount of Enterobacter aerogenes that was sensitive to fluoroquinolones and Enterococcus faecalis t hat was sensitive to penicillins, one out of two blood cultures grew back the Enterobacter aerogenes as well. Again, sensitive to fluoroquinolones. Urine culture was negative. SUMMARY OF HOSPITAL COURSE: This is a 57-year-old male who had a 24-hour history of right upper thee drant pain radiating to his back, associated with nausea. He had this previously in the past and zurita d a cholecystostomy tube placed in December of this year for the same thing. He was thought to be too h igh risk to go to the operating room due to his severe COPD. The patient was evaluated by Dr. Waldron in the emergency room. He ordered a CT guided percutaneous gallbladder drainage. We were consulte d for medical management as well as Pulmonology was consulted to help stabilize his COPD to prepare for possible surgery. The patient initially did spike a fever and spiked a white blood cell count d uring hospitalization; however, this resolved. He did have 1 out of 2 blood cultures positive for t he Enterobacter aerogenes. The patient was put on Zosyn with resolution of his leukocytosis and has fever. The patient did well during the hospital course. Dr. Gautam did start steroids and inhale rs for the patient's COPD and he had improvement in those symptoms as well. Dr. Waldron did elect to let the gallbladder cool down for 2-3 weeks before surgery on the gallbladder and he was cleared for discharge by Pulmonology and General Surgery. The patient has been transitioned to oral amoxicilli n for the Enterococcus ciprofloxacin for the Enterobacter aerogenes. DISCHARGE MANAGEMENT: Discharged home back with home health which he had previously. ACTIVITY: As tolerated. DIET: Diabetic diet. DISCHARGE MEDICATIONS: The patient is to resume all of his home medications plus: 1. Hydrocodone/acetaminophen 10/325 one tablet every 4 hours as needed for pain, #60 tablets dispen sed. 2. Ciprofloxacin 500 mg twice a day for 2 weeks. 3. Amoxicillin 500 mg 3 times a day for 2 weeks. 4. Prednisone 40 mg daily for another 2 days. He is to continue his omeprazole 40 mg daily, his Humulin, his Lipitor 10 mg daily, his hydralazine 10 mg daily, his metformin 1000 mg twice daily, gabapentin 600 mg twice daily and Glipizide 10 mg dom herman. The patient is to follow up with his primary care physician in 1 week and to follow up with Dr. Faustina jacques in 14 days.
[2017-05-13] MEDS ORDERED: AMOXicillin 250 MG CAP PO SCH (15:00)
--- NOTE | 2017-05-13 17:42 | PRG ---
DATE OF SERVICE: 05/13/2017 SERVICE: Pulmonary Medicine. INTERVAL HISTORY: The patient is doing fine from a respiratory standpoint. He actually is breathin g better than he has in quite some time. Otherwise, he is in his usual state of health and has no s pecific complaints. PHYSICAL EXAMINATION: VITAL SIGNS: Afebrile, pulse 76, blood pressure 146/75, respirations 16, saturation 94% on 2 liters nasal cannula. GENERAL: Patient is awake, alert, in no apparent distress. LUNGS: Much improved air entry. There is a prolonged expiratory phase today, but I do not apprecia te wheezing. There are no crackles or rhonchi present. HEART: Normal rate, regular. ABDOMEN: Soft, nontender, nondistended. Bowel sounds are positive. MUSCULOSKELETAL: No cyanosis or clubbing. No pitting in the bilateral lower extremities. NEUROLOGIC: Grossly nonfocal. LABORATORY DATA: Blood sugars ranged from 199-346. Central line is growing Enterobacter, which is sensitive to fluoroquinolones. Body fluid cultures a re growing Enterococcus faecalis and Enterobacter. The Enterobacter is also sensitive to fluoroquin olones. Enterococcus is sensitive to simple penicillins. ASSESSMENT: 1. Cholecystitis. 2. Bacteremia secondary to Enterococcus. 3. Chronic hypoxic respiratory failure. 4. Chronic obstructive pulmonary disease with acute exacerbation. 5. Type 2 diabetes mellitus, severe. 6. Obstructive sleep apnea. PLAN: At this time, the patient is stable from a purely respiratory perspective for transition out of the hospital, assuming we have our antibiotic choice induration established. Pulmonary Critical Care will continue to follow if he remains in house. I will certainly be available in the preopera tive period to address any respiratory issues that come up. I would like for him to visit with me i n the outpatient setting long-term.
[2017-05-13] MEDS ORDERED: Ciprofloxacin 500 MG TAB PO SCH (20:00)
== END 2017-05-13 14:56 | disposition home health service (06) | DRG 872 ==
LOC: ERS 16:50 → SURG B 23:30 → 2NO 05-10 13:40
PROVIDERS: ADMIT Surgery; ATTEND Surgery
PROC: 0F9430Z Drainage of Gallbladder with Drainage Device, Percutaneous Approach (ICD-10-PCS; principal; 2017-05-10)
PROC: 5A09357 Assistance with Respiratory Ventilation, Less than 24 Consecutive Hours, Continuous Positive Airway Pressure (ICD-10-PCS; 2017-05-11)
DX: A41.9 Sepsis, unspecified organism (principal); J96.11 Chronic respiratory failure with hypoxia; K81.0 Acute cholecystitis; E11.42 Type 2 diabetes mellitus with diabetic polyneuropathy; J44.1 Chronic obstructive pulmonary disease with (acute) exacerbation; G47.33 Obstructive sleep apnea (adult) (pediatric); Z79.4 Long term (current) use of insulin; F17.210 Nicotine dependence, cigarettes, uncomplicated; I10 Essential (primary) hypertension; E78.5 Hyperlipidemia, unspecified; Z85.038 Personal history of other malignant neoplasm of large intestine; Z88.8 Allergy status to other drugs, medicaments and biological substances
CPT/HCPCS: 36415; 36416; 47010; 71010; 74177; 76705; 77002; 80048; 80053; 80076; 81003; 82553; 83605; 83690; 84484; 85025; 85610; 85730; 87040; 87070; 87077; 87086; 87149; 87186; 87205; 93005; 93010; 94640; 94760; 96361; 96374; 96375; 96376; A4216; C1729; C9113; J1170; J1650; J1815; J1885; J2250; J2270; J2405; J2543; J3010; J7050; J7506; J7620

== ENCOUNTER 2017-05-16 09:12 | Emergency (ER) | payer OTHER ==
[2017-05-16] MEDS ORDERED: Morphine 4 MG/ML VIAL ONE (11:26)
[2017-05-16 11:52] LABS: #Eosinphils 0.3 thou/uL (0.0-0.7); #Lymphocytes 1.4 thou/uL (1.20-3.40); #Neutrophils 12.5 thou/uL (1.40-6.50); %Basophils 0.3 % (0.0-1.0); %Lymphocytes 9.4 % (21.0-51.0); %Monocytes 6.7 % (0.0-10.0); Hematocrit 45.6 % (42.0-52.0); Mean Platelet Volume 6.5 fL (7.4-10.4); Red Blood Cell (RBC) Count 4.97 mill/uL (4.70-6.10); White Blood Cell (WBC) Count 15.4 thou/uL (4.8-10.8)
--- NOTE | 2017-05-16 12:06 | RAD ---
RADIOGRAPH OF CHEST SINGLE FRONTAL VIEW: COMPARISON: 05/09/17. INDICATION: Abdominal pain. FINDINGS: There is elevation of the right hemidiaphragm again seen. Granulomatous calcification of the chest i s present. The cardiac silhouette is within normal limits of size. Metallic clips of the left upper chest are present. The chest is otherwise stable-appearing. IMPRESSION: 1. No focal consolidation. 2. Redemonstration of an elevated right hemidiaphragm. POS: [facility]
[2017-05-16 12:11] LABS: Lactic Acid - Sepsis 2.2 mmol/L (0.5-2.2)
[2017-05-16 12:16] LABS: ALT (SGPT) 58 U/L (8-55); AST (SGOT) 28 U/L (5-34); Alkaline Phosphatase 64 U/L (40-150); Anion Gap 14 mmol/L (10-20); BUN (Urea Nitrogen) 17 mg/dL (8.4-25.7); Bilirubin, Total 0.4 mg/dL (0.2-1.2); Calc. Creatinine Clearance 0 mL/min (70-130); Calcium 9.3 mg/dL (7.8-10.44); Carbon Dioxide 23 mmol/L (22-29); Chloride 98 mmol/L (98-107); Estimated GFR-MDRD Greater than 90; Lipase 13 U/L (8-78); Protein, Total 6.9 g/dL (6.0-8.3)
[2017-05-16 12:20] LABS: Troponin I Less than 0.010 ng/mL (< 0.028)
--- NOTE | 2017-06-07 15:33 | EKG ---
Test Reason : Blood Pressure : / mmHG Vent. Rate : 065 BPM Atrial Rate : 065 BPM P-R Int : 132 ms QRS Dur : 084 ms QT Int : 428 ms P-R-T Axes : 007 012 053 degrees QTc Int : 445 ms Normal sinus rhythm No STEMI Normal ECG Confirmed by NEGAR MORALES D.O. ([id number]), newspaper photo editor ANUPAM LOPEZ ([id number]) on 06/07/2017 3:32:44 PM Referred By: Confirmed By:NEGAR MORALES D.O.
== END 2017-05-16 13:18 | disposition home or self-care (01) ==
LOC: ERS 09:12
DX: K91.89 Other postprocedural complications and disorders of digestive system (principal); J45.909 Unspecified asthma, uncomplicated; E11.40 Type 2 diabetes mellitus with diabetic neuropathy, unspecified; I10 Essential (primary) hypertension; J43.9 Emphysema, unspecified; F41.9 Anxiety disorder, unspecified; F32.9 Major depressive disorder, single episode, unspecified; F17.210 Nicotine dependence, cigarettes, uncomplicated; Z79.84 Long term (current) use of oral hypoglycemic drugs; Z79.899 Other long term (current) drug therapy
CPT/HCPCS: 36415; 71010; 80053; 82553; 83605; 83690; 84484; 85025; 93005; 96374; 99406; J2270

== ENCOUNTER 2017-08-16 14:28 | Emergency (ER) | payer OTHER ==
[2017-08-16 14:56] LABS: #Basophils 0.1 thou/uL (0.0-0.2); #Eosinphils 0.1 thou/uL (0.0-0.7); #Lymphocytes 1.3 thou/uL (1.20-3.40); #Monocytes 0.6 thou/uL (0.11-0.59); #Neutrophils 11.3 thou/uL (1.40-6.50); %Basophils 0.4 % (0.0-1.0); %Lymphocytes 9.6 % (21.0-51.0); %Monocytes 4.7 % (0.0-10.0); %Neutrophils 84.3 % (42.0-75.0); Hemoglobin 18.1 g/dL (14.0-18.0); Mean Corpuscular Hemoglobin 30.8 pg (27.0-31.0); Mean Corpuscular Volume 90.7 fl (80.0-94.0); Mean Platelet Volume 6.7 fL (7.4-10.4); Platelet Count 246 thou/uL (130-400); RBC Distribution Width 12.1 % (11.5-14.5); Red Blood Cell (RBC) Count 5.88 mill/uL (4.70-6.10); White Blood Cell (WBC) Count 13.4 thou/uL (4.8-10.8)
[2017-08-16] MEDS ORDERED: Ondansetron HCl/PF 4 MG/2 ML Vial ONE ×3 (15:00→19:34)
[2017-08-16 15:16] LABS: ALT (SGPT) 43 U/L (8-55); AST (SGOT) 22 U/L (5-34); Albumin 5.2 g/dL (3.5-5.0); Alkaline Phosphatase 77 U/L (40-150); Anion Gap 18 mmol/L (10-20); BUN (Urea Nitrogen) 11 mg/dL (8.4-25.7); Bilirubin, Total 0.5 mg/dL (0.2-1.2); CK (CPK) 111 U/L (30-200); Calc. Creatinine Clearance 0 mL/min (70-130); Calcium 11.1 mg/dL (7.8-10.44); Carbon Dioxide 25 mmol/L (22-29); Chloride 98 mmol/L (98-107); Estimated GFR-MDRD 76; Globulin 3.4 g/dL (2.4-3.5); Glucose 194 mg/dL (70-105); Lipase 10 U/L (8-78); Potassium 3.7 mmol/L (3.5-5.1); Protein, Total 8.6 g/dL (6.0-8.3); Sodium 137 mmol/L (136-145)
[2017-08-16 15:28] LABS: CKMB 2.2 ng/mL (0-6.6); Troponin I Less than 0.010 ng/mL (< 0.028)
--- NOTE | 2017-08-16 15:48 | ULT ---
RIGHT UPPER QUADRANT SONOGRAM: HISTORY: Right upper quadrant pain. FINDINGS: The patient was reportedly tender over the gallbladder fossa at the time of the exam. Gallbladder wa ll thickness is upper limits of normal. No shadowing stones are apparent. Minimal fluid is present around the gallbladder. The common duct is 0.6 cm diameter. The liver is heterogeneous without intr ahepatic biliary dilatation. No free fluid is apparent. IMPRESSION: No objective findings for acute biliary obstruction. Point tenderness over the gallbladder fossa, wi th a well-distended gallbladder, however, can be seen with acute cholecystitis. Clinical correlation regarding other signs and symptoms of acute cholecystitis is required. POS: [facility]
--- NOTE | 2017-08-16 16:10 | RAD ---
CHEST ONE VIEW 08/16/17 HISTORY: Chest pain. COMPARISON: 05/16/17 FINDINGS: The cardiac silhouette is magnified by projection. Shallow inspiration accentuates pulmonary markings . Right hemidiaphragm remains elevated. Metallic clips overlie the left chest. equipment monitor phototypesetting leads overlie the chest. IMPRESSION: Chronic type findings are stable. No active cardiopulmonary abnormalities are demonstrated. POS: [facility]
[2017-08-16 16:35] LABS: Bilirubin Negative (Negative); Blood, Urine Negative (Negative); Clarity CLEAR (Clear); Glucose, Urine (Dipstick) 500 mg/dL (Negative); Leukocyte Negative (Negative); Nitrite Negative (Negative); Protein, Urine (Dipstick) Trace mg/dL (Neg-Trace); Specific Gravity, Urine 1.028 (1.002-1.036); Urobilinogen 0.2 mg/dL (0.2-1.0); pH, Urine 8.5 (5.0-9.0)
--- NOTE | 2017-08-16 18:41 | CT ---
ABDOMEN AND PELVIS CT WITH CONTRAST 08/16/17 COMPARISON: 05/10/17, 02/10/17 INDICATION: Generalized abdominal pain, right upper quadrant pain. Clinical concern for bowel obstruction. FINDINGS: Moderate distention of the gallbladder is present. There is slight wall hyperdensity as well as peric holecystic fat stranding. The extrahepatic common duct is prominent. There is a focal hyperdensity ap proximating the cystic duct and gallbladder neck. Punctate hypoattenuation of the hepatic parenchyma is present within each hepatic lobe, too small to further characterize. Splenic granulomatous calcifi cation present. There is no adrenal mass or hydronephrosis. The bowel is nonobstructed. There is mode rate retained fecal material in the colon. No free air. Scattered vascular disease is seen. Scarring and/or volume loss present at the lung bases. No acute osseous pathology visualized. IMPRESSION: Findings most consistent with obstructive pathology at the gallbladder, as discussed above. A focal h yperdensity nearing the junction of the cystic duct and gallbladder neck is likely the obstructive so urce. This was not visualized on the preceding gallbladder ultrasound. However, the hyperdensity of t he region of the gallbladder neck has been documented on preceding CT 02/10/17. Recommend surgical con sultation given the imaging appearance of obstructive pathology. POS: [facility]
[2017-08-16] MEDS ORDERED: HYDROcodone/Acetaminophen 5/325 mg Tablet PO PRN (20:58)
[2017-08-16] MEDS ORDERED: Dextrose 50% Abboject 50 ML SYRINGE SLOW IVP PRN (20:58)
[2017-08-16] MEDS ORDERED: HumaLOG 300 UNITS/3 ML VIAL SC PRN (20:58)
[2017-08-16] MEDS ORDERED: Ondansetron HCl/PF 4 MG/2 ML Vial IVP PRN (20:58)
[2017-08-16] MEDS ORDERED: Dextrose 5% in Water 1,000 ML IV PRN (20:58)
[2017-08-16] MEDS ORDERED: Bisacodyl 10 MG SUPP PR PRN (20:58)
[2017-08-16] MEDS ORDERED: HYDROcodone/Acetaminophen 7.5/325 mg Tablet PO PRN (20:58)
[2017-08-16] MEDS ORDERED: Bisacodyl 5 MG TAB PO PRN (20:58)
[2017-08-16] MEDS ORDERED: Famotidine/PF 20 mg/2ml Vial SLOW IVP SCH (21:00)
[2017-08-16] MEDS ORDERED: Nicotine 21 MG PATCH TD SCH (21:00)
[2017-08-16] MEDS ORDERED: Sodium Chloride 0.9% 1,000 ML IV SCH (21:30)
--- NOTE | 2017-08-16 21:52 | HP ---
CHIEF COMPLAINT: Right upper quadrant pain. HISTORY OF PRESENT ILLNESS: The patient is a 57-year-old male who presents with right upper quadrant abdominal pain starting around 4:00 today. Patient states that he has had prior issues with his gal lbladder. He has gallstones; however, could not get his gallbladder removed due to his COPD. Te smith had a drain placed recently and removed one month ago. He states that his abdominal pain is 10/10, does not radiate anywhere and is accompanied by some nausea as well as some vomiting. PAST MEDICAL HISTORY: Significant for COPD, type 2 diabetes, hypertension. PAST SURGICAL HISTORY: The patient has had prior appendectomy, hernia surgery x5, lobectomy x2 as we ll as prior colostomy and colostomy takedown and also gallbladder drain placed in the past as discuss ed above. SOCIAL HISTORY: The patient smokes about 1 to 1-1/2 packs a day with social drinking. FAMILY HISTORY: Reviewed and noncontributory. LABORATORY AND X-RAY DATA: The patient's CBC, white count is 13.4, H and H 18 and 53 with platelet of 256. Sodium is 137, potas sium 3.7, chloride 98, bicarbonate 25, BUN 11, creatinine 1.0 with a total bilirubin of 0.5. The pat ient's UA was leukocyte esterase negative, nitrite negative. Abdomen and pelvis CT showed findings c onsistent with obstructive pathology of the gallbladder. There is a focal hyperdensity near the junc tion of the cystic duct and gallbladder neck. REVIEW OF SYSTEMS Please see HPI. Rest of the 14-point review of system is negative. PHYSICAL EXAMINATION: VITAL SIGNS: Blood pressure 170/100, pulse 88, respirations 24, patient is satting 94% on room air. GENERAL: Patient is awake, alert, and oriented x3, no acute distress. HEENT: Pupils equal, round, reactive to light and accommodation. Extraocular muscles intact. TMs c lear. No erythema in throat. NECK: No JVD, no lymphadenopathy. CARDIOVASCULAR: Regular rate and rhythm. LUNGS: Clear to auscultation bilaterally. ABDOMEN: Positive bowel sounds, soft, tender to palpation in the right upper quadrant. No peritonea l signs. No rebound, or rigidity. EXTREMITIES: No clubbing, cyanosis or edema. NEUROLOGIC: Cranial nerves II-XII are grossly intact. PSYCHIATRIC: Patient is cooperative and answers questions appropriately. ASSESSMENT AND PLAN: 1. Cholelithiasis with possible obstruction. Continue pain control. General surgery has been consu lted and they will see in the morning. Maintain on clear liquids only for now. 2. Type 2 diabetes. Continue on insulin sliding scale. For now, hold the patient's oral as well as insulin medications due to clear liquid diet only. 3. Hypertension. Restart outpatient meds and p.r.n. meds as needed. 4. CODE STATUS: The patient is FULL CODE.
[2017-08-17] MEDS ORDERED: Enoxaparin Sodium 30 MG/0.3 ML SYRINGE SC SCH (09:00)
[2017-08-17] MEDS ORDERED: hydrALAZINE 10 MG TAB PO SCH (09:00)
[2017-08-17] MEDS ORDERED: Gabapentin 300 MG CAP PO SCH (09:00)
== END 2017-08-16 22:51 | disposition short-term general hospital (02) ==
LOC: ERS 14:28
DX: R10.11 Right upper quadrant pain (principal); R10.30 Lower abdominal pain, unspecified; J45.909 Unspecified asthma, uncomplicated; E11.40 Type 2 diabetes mellitus with diabetic neuropathy, unspecified; I10 Essential (primary) hypertension; J43.9 Emphysema, unspecified; F41.9 Anxiety disorder, unspecified; F32.9 Major depressive disorder, single episode, unspecified; F17.210 Nicotine dependence, cigarettes, uncomplicated; Z71.6 Tobacco abuse counseling; Z85.038 Personal history of other malignant neoplasm of large intestine; Z79.891 Long term (current) use of opiate analgesic; Z79.899 Other long term (current) drug therapy; Z79.84 Long term (current) use of oral hypoglycemic drugs
CPT/HCPCS: 71045; 74177; 76705; 80053; 81003; 82550; 82553; 83690; 83880; 84484; 85025; 87086; 93005; 94760; 96374; 96375; 96376; 99406; J2270; J2405